=== PATIENT | female | born 1950 | race Caucasian/White ===

== ENCOUNTER 2019-03-06 20:18 | Inpatient (IN) | payer MEDICARE, MEDICAID ==
[~2019-03-06] VITALS: Ht 172.7 cm; Wt 79.5 kg
[2019-03-06 21:10] LABS: BASOPHILS # (AUTO) 0.1 X10'3 (0-0.2); BASOPHILS % (AUTO) 0.5 % (0-1); EOSINOPHILS % (AUTO) 0.1 % (0-6); HEMATOCRIT 35.2 % (35.0-45.0); HEMOGLOBIN 12.2 g/dl (12.0-16.0); LYMPHOCYTES # (AUTO) 0.6 X10'3 (1.1-4.8); LYMPHOCYTES % (AUTO) 2.2 % (21-51); MEAN CORPUSCULAR HEMOGLOBIN 32.7 PG (27.0-31.0); MEAN CORPUSCULAR HGB CONC 34.6 g/dL (33.0-36.5); MEAN CORPUSCULAR VOLUME 94.3 FL (78-98); MEAN PLATELET VOLUME 8.3 FL (7.4-10.4); MONOCYTES # (AUTO) 1.2 X10'3 (0-0.9); MONOCYTES % (AUTO) 4.3 % (2-12); NEUTROPHILS # (AUTO) 25.4 X10'3 (1.8-7.7); NEUTROPHILS % (AUTO) 92.9 % (42-75); PLATELET COUNT 385 X10'3 (140-440); RED BLOOD COUNT 3.73 X10'6 (4.20-5.60); RED CELL DISTRIBUTION WIDTH 17.7 % (11.5-14.5)
[2019-03-06 21:15] LABS: WHITE BLOOD COUNT 27.3 X10'3 (4.5-11.0)
[2019-03-06] MEDS ORDERED: normal saline 1000ML IV soln IV ONE (21:20)
[2019-03-06 21:22] LABS: CLARITY,URINE SLIGHTLY CLOUDY (Clear); COLOR,URINE AMBER (Yellow); GLUCOSE, URINE NEGATIVE (Neg); KETONES,URINE TRACE mg/dl (Neg); LEUKOCYTE ESTERASE ,URINE NEGATIVE (Neg); OCCULT BLOOD,URINE NEGATIVE (Neg); PROTEIN,URINE 30 mg/dl (Neg); UROBILINOGEN,URINE >=8.0 E.U/dL (0.2-1.0)
[2019-03-06 21:23] LABS: UA COLLECTION TYPE CLN CATCH MIDSTREAM
[2019-03-06 21:25] LABS: NITRITES, URINE NEGATIVE (Neg)
[2019-03-06 21:30] LABS: AMORPHOUS URATES 1+; BACTERIA,URINE 1+ /HPF (Neg); MUCUS STRANDS MODERATE /LPF (Neg); RBC,URINE NONE SEEN /HPF (0-2); SQUAMOUS EPITHELIAL CELL,UR MANY /LPF (FEW); WBC,URINE 0-4 /HPF (0-4)
[2019-03-06 21:41] LABS: ALANINE AMINOTRANSFERASE 59 U/L (12-78); ALBUMIN/GLOBULIN RATIO 0.4 (1.1-1.5); ALKALINE PHOSPHATASE 358 IU/L (46-116); ANION GAP 9 (8-16); ASPARTATE AMINO TRANSFERASE 116 U/L (10-37); BILIRUBIN,TOTAL 2.4 MG/DL (0.1-1.0); BLOOD UREA NITROGEN 42 MG/DL (7-18); BUN/CREATININE RATIO 28.6 (6.6-38.0); CHLORIDE 91 MMOL/L (99-107); CREATININE 1.47 MG/DL (0.40-0.90); GLUCOSE 138 MG/DL (70-104); MAGNESIUM 1.5 MG/DL (1.5-2.4); POTASSIUM 3.2 MMOL/L (3.5-5.1); SODIUM 133 MMOL/L (135-145); TOTAL CARBON DIOXIDE 33.2 MMOL/L (24-32); TOTAL PROTEIN 7.3 G/DL (6.4-8.2); eGFR 35 ML/MIN
[2019-03-06 21:43] LABS: CALCIUM 12.7 MG/DL (8.5-10.1)
--- NOTE | 2019-03-06 22:21 | NUR ---
Per Dr. May fowler to order Tylenol po 650mg now for back pain.
[2019-03-06] MEDS ORDERED: acetaminophen 325mg tablet PO ONE (22:25)
[2019-03-06 22:34] LABS: ANISOCYTOSIS 1+; PLATELET ESTIMATE NORMAL; TOTAL CELLS COUNTED 100
[2019-03-06 22:35] LABS: LARGE PLATELETS FEW; TARGET CELLS FEW
[2019-03-06] MEDS ORDERED: HYDR12.55 PO (22:53)
[2019-03-06] MEDS ORDERED: METO100T14 PO (22:53)
[2019-03-06] MEDS ORDERED: morphine 2 MG/ML inj. syringe IV PRN ×2 (23:10)
[2019-03-06] MEDS ORDERED: potassium CL 10mEq/100ml bag 100 ML IV PRN ×2 (23:10)
[2019-03-06] MEDS ORDERED: mag hydrox/Alum hydrox/simeth 30ml oral suspension PO PRN (23:10)
[2019-03-06] MEDS ORDERED: acetaminophen 325mg tablet PO PRN (23:10)
[2019-03-06] MEDS ORDERED: magnesium 4gm in 100ml NS 100 ML IV PRN (23:10)
[2019-03-06] MEDS ORDERED: magnesium hydroxide 30ml (MOM) UD suspension PO PRN (23:10)
[2019-03-06] MEDS ORDERED: magnesium 2GM in 50ml NS 50 ML IV PRN (23:10)
[2019-03-06] MEDS ORDERED: potassium Cl 20 mEq SR tablet PO PRN ×2 (23:10)
--- NOTE | 2019-03-07 00:30 | NUR ---
Patient in room [facility]TH[facility] 4013. I have received report from GRACE Burden and had the opportunity to ask questions and assume patient care.
[2019-03-07] MEDS ORDERED: CefTRIAXone 2gm/D5W 50ml 50 ML IV ONE (00:45)
[2019-03-07] MEDS: normal saline 1000ml 1,000 ML IV SCH ×3 (01:01→19:07)
[2019-03-07 01:03] VITALS: BP 162/87
[2019-03-07] MEDS: acetaminophen 325mg tablet PO PRN (03:12)
[2019-03-07 03:13] LABS: BASOPHILS # (AUTO) 0.1 X10'3 (0-0.2); BASOPHILS % (AUTO) 0.5 % (0-1); EOSINOPHILS % (AUTO) 0 % (0-6); HEMATOCRIT 31.4 % (35.0-45.0); HEMOGLOBIN 11.1 g/dl (12.0-16.0); LYMPHOCYTES # (AUTO) 1.8 X10'3 (1.1-4.8); LYMPHOCYTES % (AUTO) 8.5 % (21-51); MEAN CORPUSCULAR HEMOGLOBIN 33.1 PG (27.0-31.0); MEAN CORPUSCULAR HGB CONC 35.4 g/dL (33.0-36.5); MEAN CORPUSCULAR VOLUME 93.5 FL (78-98); MONOCYTES # (AUTO) 1.1 X10'3 (0-0.9); MONOCYTES % (AUTO) 5.3 % (2-12); NEUTROPHILS # (AUTO) 17.9 X10'3 (1.8-7.7); NEUTROPHILS % (AUTO) 85.7 % (42-75); PLATELET COUNT 338 X10'3 (140-440); RED BLOOD COUNT 3.35 X10'6 (4.20-5.60); RED CELL DISTRIBUTION WIDTH 17.7 % (11.5-14.5); WHITE BLOOD COUNT 20.9 X10'3 (4.5-11.0)
[2019-03-07 03:24] LABS: ALBUMIN 1.8 G/DL (3.4-5.0); ANION GAP 10 (8-16); BLOOD UREA NITROGEN 38 MG/DL (7-18); BUN/CREATININE RATIO 36.2 (6.6-38.0); CHLORIDE 93 MMOL/L (99-107); CREATININE 1.05 MG/DL (0.40-0.90); GLUCOSE 120 MG/DL (70-104); MAGNESIUM 1.4 MG/DL (1.5-2.4); SODIUM 135 MMOL/L (135-145); TOTAL CARBON DIOXIDE 32.4 MMOL/L (24-32); eGFR 52 ML/MIN
[2019-03-07 03:29] LABS: CALCIUM 12.2 MG/DL (8.5-10.1)
[2019-03-07] MEDS ORDERED: POTASSIUM BICARB 20meq eff tab 20 MEQ TABLET.EFF PO PRN (03:40)
[2019-03-07] MEDS: POTASSIUM BICARB 20meq eff tab 20 MEQ TABLET.EFF PO PRN ×3 (03:56→12:57)
[2019-03-07] MEDS: magnesium Cl slow-release 64mg tablet PO PRN ×2 (03:57→15:28)
[2019-03-07 06:00] VITALS: BP 133/75
[2019-03-07 06:35] LABS: TOTAL CELLS COUNTED 100
[2019-03-07 06:36] LABS: ANISOCYTOSIS 1+; PLATELET ESTIMATE NORMAL
[2019-03-07 06:37] LABS: POLYCHROMASIA FEW
[2019-03-07 06:38] LABS: TARGET CELLS 1+
--- NOTE | 2019-03-07 06:47 | NUR ---
Problems reprioritized. Patient report given, questions answered & plan of care reviewed with GRACE Espinoza.
--- NOTE | 2019-03-07 06:57 | NUR ---
Patient in room ORTHO 4013. I have received report from Beti EDWARDS and had the opportunity to ask questions and assume patient care.
[2019-03-07] MEDS: K and/or MAG REPLACEMENT MC SCH (08:12)
[2019-03-07] MEDS: metoprolol tartrate 50mg tablet PO SCH (08:20)
[2019-03-07] MEDS: lactobacillus rhamnosus 10,000 MMU CELLS/CAPSULE PO SCH ×2 (08:20→19:56)
[2019-03-07] MEDS: enoxaparin 40mg/0.4ml syringe SQ SCH (08:21)
[2019-03-07] MEDS: metroNIDAZOLE-Flagyl 500mg/NS 100 ML IV SCH ×2 (08:22→15:28)
[2019-03-07 09:54] LABS: ALANINE AMINOTRANSFERASE 53 U/L (12-78); ASPARTATE AMINO TRANSFERASE 94 U/L (10-37)
[2019-03-07 10:00] VITALS: BP 131/75
--- NOTE | 2019-03-07 10:04 | NUR ---
patient Potassium 3.0 Calcium 12.2 Magnesium 1.4 Started patient on replacement protocol and MD notified.
[2019-03-07] MEDS: HYDROcodone/acetaminophen 5mg/325mg tablet PO PRN (15:28)
--- NOTE | 2019-03-07 17:06 | NUR ---
Malnutrition consult. Per malnutrition risk screening patient reports recent weight loss and poor appetite. No edema present. Current weight 79.55 kg patient stated. Only previous documented weight is 79.7 kg on standing scale three years ago. Appears that current stated weight is consistent with usual body weight. Patient has received two meals so far this admission with 50% PO regular diet. Presents with generalized weakness, dehydration, history of breast cancer, admitted for treatment of severe sepsis, acute renal failure, hypercalcemia possibly d/t suspected metastasis, prerenal dehydration, and possible diverticulitis. Per H&P hypercalcemia History of recent flu two weeks ago. She has increased protein needs r/t sepsis. RD visited patient at bedside, reports a poor appetite due to feeling overwhelmed by the amount of food, obtained food preferences including a hamburger for lunch tomorrow with milk and yogurt. Encouraged intake of protein. Reports diarrhea and is eating bananas to help thicken stool, will send more with breakfast tray. Will continue to follow. Recommend: 1. continue regular diet 2. encourage PO Intake 3. bowel care as needed 3. weight per rx Addendum: 03/07/19 at [address] Amended: Links added.
[2019-03-07 18:00] VITALS: BP 116/68
--- NOTE | 2019-03-07 18:23 | NUR ---
Problems reprioritized. Patient report given, questions answered & plan of care reviewed with Lucinda EDWARDS.
--- NOTE | 2019-03-07 18:30 | NUR ---
Patient in room [facility]TH[facility] 4013. I have received report from Alexis EDWARDS and had the opportunity to ask questions and assume patient care.
[2019-03-07] MEDS ORDERED: pamidronate disodium inj 30 MG in normal saline 250ml IV soln 250 ML IV ONE (19:00)
[2019-03-07 22:00] VITALS: BP 138/89
[2019-03-07] MEDS: CefTRIAXone 2gm/D5W 50ml 50 ML IV SCH (23:44)
[2019-03-08] MEDS: normal saline 1000ml 1,000 ML IV SCH ×2 (00:34→11:31)
[2019-03-08] MEDS: metroNIDAZOLE-Flagyl 500mg/NS 100 ML IV SCH ×5 (00:34→16:53)
[2019-03-08 06:00] VITALS: BP 139/85
--- NOTE | 2019-03-08 06:15 | NUR ---
Patient in room ORTHO 4013. I have received report from GRACE Jane and had the opportunity to ask questions and assume patient care.
--- NOTE | 2019-03-08 06:30 | NUR ---
Problems reprioritized. Patient report given, questions answered & plan of care reviewed with Chasidy EDWARDS.
[2019-03-08] MEDS: HYDROcodone/acetaminophen 5mg/325mg tablet PO PRN ×2 (06:40→19:11)
[2019-03-08] MEDS: ondansetron/PF 4mg/2ml inj IV PRN ×2 (06:40→19:11)
[2019-03-08 07:06] LABS: BASOPHILS % (AUTO) 0.2 % (0-1); EOSINOPHILS % (AUTO) 0 % (0-6); HEMATOCRIT 30.4 % (35.0-45.0); HEMOGLOBIN 10.4 g/dl (12.0-16.0); LYMPHOCYTES # (AUTO) 0.7 X10'3 (1.1-4.8); LYMPHOCYTES % (AUTO) 3.8 % (21-51); MEAN CORPUSCULAR HEMOGLOBIN 32.4 PG (27.0-31.0); MEAN CORPUSCULAR HGB CONC 34.3 g/dL (33.0-36.5); MEAN CORPUSCULAR VOLUME 94.5 FL (78-98); MEAN PLATELET VOLUME 8.1 FL (7.4-10.4); MONOCYTES % (AUTO) 9.9 % (2-12); NEUTROPHILS % (AUTO) 86.1 % (42-75); PLATELET COUNT 316 X10'3 (140-440); RED BLOOD COUNT 3.22 X10'6 (4.20-5.60); RED CELL DISTRIBUTION WIDTH 17.7 % (11.5-14.5); WHITE BLOOD COUNT 19.8 X10'3 (4.5-11.0)
[2019-03-08 07:37] LABS: ALANINE AMINOTRANSFERASE 38 U/L (12-78); ALBUMIN 1.8 G/DL (3.4-5.0); ALBUMIN/GLOBULIN RATIO 0.4 (1.1-1.5); ALKALINE PHOSPHATASE 283 IU/L (46-116); ANION GAP 8 (8-16); ASPARTATE AMINO TRANSFERASE 56 U/L (10-37); BILIRUBIN,TOTAL 1.6 MG/DL (0.1-1.0); BLOOD UREA NITROGEN 30 MG/DL (7-18); BUN/CREATININE RATIO 33.3 (6.6-38.0); CHLORIDE 97 MMOL/L (99-107); GLUCOSE 119 MG/DL (70-104); MAGNESIUM 1.5 MG/DL (1.5-2.4); POTASSIUM 4.2 MMOL/L (3.5-5.1); SODIUM 135 MMOL/L (135-145); TOTAL CARBON DIOXIDE 29.7 MMOL/L (24-32); TOTAL PROTEIN 6.5 G/DL (6.4-8.2); eGFR 62 ML/MIN
[2019-03-08 07:41] LABS: CALCIUM 12.3 MG/DL (8.5-10.1)
[2019-03-08] MEDS: metoprolol tartrate 50mg tablet PO SCH (08:00)
[2019-03-08] MEDS: lactobacillus rhamnosus 10,000 MMU CELLS/CAPSULE PO SCH ×3 (08:00→19:11)
[2019-03-08] MEDS: K and/or MAG REPLACEMENT MC SCH (08:00)
[2019-03-08 10:00] VITALS: BP 132/59
[2019-03-08] MEDS: enoxaparin 40mg/0.4ml syringe SQ SCH (11:30)
--- NOTE | 2019-03-08 14:55 | NUR ---
Patient Care Meeting: Met with pts daughter Myrtle, Pt, and myself in pts room at bedside at 1455. Dr. Crystal informed pt and her daughter of CAT scan results which showed "Multiple hepatic liver lesions and that scan also shows multiple bone breakdowns as tumors can eat up the bones." Discussed pts history of Breast CA in 2014 with bilateral mastectomy's at that time. Dr. Crystal informed pt and daughter that she came in dehydration and her creatinine was high at that time, and her white blood cells were decreasing and her infection is improving. Dtr informed Dr. Crystal that Dr. Vaughn at [facility] was her PCP, and after pt is discharged from [facility], they will discuss treatment options with Dr. Vaughn. Dr. Crystal informed pt and her daughter that there are Option #1 which is no more tests or medications, and she maintain Quality of Life, or #2 she decides to move forward with treatment for the tumors discussed today. Dr. Crystal informed pt and dtr that she should be able to go home in 2-3 days, but because she lives alone (dtr lives nearby), pt needs to be able to ambulate, dress herself, walk to the bathroom, and improve her appetite by eating meals served to her here at the hospital. Pt's daughter informed Dr. Crystal she is not able to provide 24 hour care to her mom at this time. After meeting with pts daughter, Myrtle, she called me out of the room and informed me that she does not want staff members to have any further discussion with the patient about the new diagnosis of the cancer spreading. I told pts daughter that I will be here the next few days, and I can pass this onto the [facility] RN's & staff as well as the Charge Nurse's. Informed Myrtle that if pt has further questions about the information discussed today, I will have the Hospitalist discuss pertinent issues with her. Will continue to monitor and assess pt.
[2019-03-08 18:00] VITALS: BP 128/82
--- NOTE | 2019-03-08 18:00 | NUR ---
RECEIVED REPORT FROM MANGO EDWARDS AND ASSUMED PATIENT CARE
--- NOTE | 2019-03-08 18:33 | NUR ---
Problems reprioritized. Patient report given, questions answered & plan of care reviewed with GRACE Ch.
[2019-03-08] MEDS: CefTRIAXone 2gm/D5W 50ml 50 ML IV SCH (20:46)
[2019-03-09] MEDS: metroNIDAZOLE-Flagyl 500mg/NS 100 ML IV SCH ×2 (00:10→07:39)
[2019-03-09] MEDS: ondansetron/PF 4mg/2ml inj IV PRN ×3 (04:21→20:03)
[2019-03-09] MEDS: HYDROcodone/acetaminophen 5mg/325mg tablet PO PRN ×3 (04:21→20:08)
--- NOTE | 2019-03-09 04:58 | NUR ---
0300 FOUND PATIENT ON HER SIDE IN BED CALLING FOR HELP. REPOSITIONED FOR COMFORT. AT THIS TIME, NOTED PATIENTS CHANGE IN MENTAL STATUS, SPECIFICALLY WITH FINDING HER WORDS. PATIENT ABLE TO STATE NAME, DATE OF AND WHY SHE WAS HERE IN THE HOSPITAL, BUT WHEN TRYING TO CONVEY HOW UNCOMFORTABLE SHE WAS KEPT REPEATING VARIATIONS OF "I CANT SCOOT" AND SAID "I CANT BEND MY SHEETS, KNEES". SHE COULD NOT GIVE A STRAIGHT ANSWER ABOUT WHAT WAS WRONG OR WHAT WE COULD DO TO MAKE HER COMFORTABLE, INSTEAD MUMBLED INCOMPREHENSIBLE WORDS, STUTTERED TRYING TO THINK OF WHAT SHE WAS TRYING TO SAY OR SAID THINGS THAT DIDN'T MAKE SENSE. MADE CALL TO DAUGHTER WHO SAID HER MOTHER STARTED ACTING WEIRD "A FEW DAYS BEFORE SHE CAME IN" BUT NOT TO THIS EXTENT. IN THE BEGINNING OF MY SHIFT PATIENT SEEMED TIRED AND SLOW TO SPEAK BUT WAS ABLE TO FORM COMPREHENSIBLE STATEMENTS ABOUT WHAT SHE NEEDED. MADE CALL TO DR. GARCIA WHO SUGGESTED DRAW AN AMMONIA LEVEL AND HAVE DAY SHIFT HOSPITALIST FOLLOW UP. WILL CONTINUE TO CLOSELY MONITOR.
[2019-03-09 05:49] LABS: BASOPHILS % (AUTO) 0.1 % (0-1); EOSINOPHILS % (AUTO) 0.2 % (0-6); HEMATOCRIT 28.8 % (35.0-45.0); HEMOGLOBIN 9.8 g/dl (12.0-16.0); LYMPHOCYTES # (AUTO) 0.6 X10'3 (1.1-4.8); LYMPHOCYTES % (AUTO) 4.5 % (21-51); MEAN CORPUSCULAR HEMOGLOBIN 32.6 PG (27.0-31.0); MEAN CORPUSCULAR HGB CONC 34.2 g/dL (33.0-36.5); MEAN CORPUSCULAR VOLUME 95.4 FL (78-98); MEAN PLATELET VOLUME 7.7 FL (7.4-10.4); MONOCYTES # (AUTO) 0.8 X10'3 (0-0.9); MONOCYTES % (AUTO) 5.8 % (2-12); NEUTROPHILS # (AUTO) 12.1 X10'3 (1.8-7.7); NEUTROPHILS % (AUTO) 89.4 % (42-75); PLATELET COUNT 275 X10'3 (140-440); RED BLOOD COUNT 3.02 X10'6 (4.20-5.60); WHITE BLOOD COUNT 13.5 X10'3 (4.5-11.0)
--- NOTE | 2019-03-09 06:12 | NUR ---
REPORT GIVEN TO MANGO EDWARDS
--- NOTE | 2019-03-09 06:15 | NUR ---
Problems reprioritized. Patient report given, questions answered & plan of care reviewed with GRACE Ch.
[2019-03-09 06:34] VITALS: BP 133/77
[2019-03-09 06:39] LABS: ALANINE AMINOTRANSFERASE 25 U/L (12-78); ALBUMIN 1.6 G/DL (3.4-5.0); ALBUMIN/GLOBULIN RATIO 0.4 (1.1-1.5); ALKALINE PHOSPHATASE 273 IU/L (46-116); ANION GAP 10 (8-16); ASPARTATE AMINO TRANSFERASE 43 U/L (10-37); BILIRUBIN,TOTAL 1.4 MG/DL (0.1-1.0); BLOOD UREA NITROGEN 28 MG/DL (7-18); BUN/CREATININE RATIO 30.1 (6.6-38.0); CALCIUM 11.3 MG/DL (8.5-10.1); CHLORIDE 101 MMOL/L (99-107); CREATININE 0.93 MG/DL (0.40-0.90); GLUCOSE 115 MG/DL (70-104); MAGNESIUM 1.4 MG/DL (1.5-2.4); SODIUM 139 MMOL/L (135-145); TOTAL CARBON DIOXIDE 27.6 MMOL/L (24-32); eGFR 60 ML/MIN
[2019-03-09] MEDS: lactobacillus rhamnosus 10,000 MMU CELLS/CAPSULE PO SCH ×2 (07:35→19:38)
[2019-03-09] MEDS: magnesium Cl slow-release 64mg tablet PO PRN ×2 (07:36→19:38)
[2019-03-09] MEDS: enoxaparin 40mg/0.4ml syringe SQ SCH (07:36)
[2019-03-09] MEDS: normal saline 1000ml 1,000 ML IV SCH ×2 (07:39→19:45)
[2019-03-09] MEDS: metoprolol tartrate 50mg tablet PO SCH (07:49)
[2019-03-09] MEDS: K and/or MAG REPLACEMENT MC SCH (08:00)
[2019-03-09 09:37] LABS: ANISOCYTOSIS 1+; GIANT PLATELET FEW; LARGE PLATELETS FEW; PLATELET ESTIMATE NORMAL
[2019-03-09 10:52] VITALS: BP 119/69
--- NOTE | 2019-03-09 11:46 | NUR ---
Student Medication Administration: For this medication-pass time frame [id number], all medication were reviewed, administered and documented per hospital policy by Estela Rascon. Student documentation:I have reviewed and agree with all interventions, assessments performed and documented by Estela Rascon.
--- NOTE | 2019-03-09 12:05 | NUR ---
Patient report given, questions answered & plan of care reviewed with Julian EDWARDS .
[2019-03-09] MEDS ORDERED: oseltamivir phos 75mg capsule PO SCH (14:00)
--- NOTE | 2019-03-09 15:32 | NUR ---
Received report at 0620 and informed pt has a temp of 100.6. Pt was given [place]. Went to pts room. Recheck of temp was 98.2. Pt could verbalize her , but could not tell me where she was at this time. Pt completely focused on her blankets and the call light. Pt asking frequently (every 1 min) for RN to make her "covers even on her bed, and please put my body in the middle of the bed, directly between these posts." Respositioned pt multiple times during the past 8 hours, and would continue to ask nurse to reposition her after she was assisted up in the bed, as well as re evaluated pts pain. Pt reported she did not need pain medicine. Pt reported when she received her breakfast tray that "yesterday they taped all the lids of juice down so I couldn't drink my fluids. Pt appeared more alert/oriented at approximately 1100 when made rounds. Pt could inform him of name, , and location. At approximately 12:45, pt returned to asking for us to "get her covers straight, and put my call light right here," when call light was already safety pinned to pts gown. Repetitive behaviors, asking the same question, flat affect, word finding and keeping the nurse in the room for long periods of time as she keeps asking the same question over and over, and despite answering the pts question, the behavior continues. Dr. Logan ordered CT of head with contrast. Spoke directly with Jodi in [place] and informed of CT with contrast. Pt assisted to w/c at [address] Received a call from the "Radiologist," who stated the CT was done without contrast. Informed Radiologist that CT was ordered with contrast and he stated he would check into it and call me back. As of 154, I have not received a return phone call. Will continue to monitor pt closely.
[2019-03-09] MEDS: metroNIDAZOLE 500mg tablet PO SCH (16:03)
[2019-03-09 18:00] VITALS: BP 131/79
--- NOTE | 2019-03-09 18:04 | NUR ---
RECEIVED REPORT FROM MANGO EDWARDS AND ASSUMED PATIENT CARE
--- NOTE | 2019-03-09 18:40 | NUR ---
Problems reprioritized. Patient report given, questions answered & plan of care reviewed with GRACE Ch.
[2019-03-09] MEDS: CefTRIAXone 2gm/D5W 50ml 50 ML IV SCH (20:08)
[2019-03-09 22:00] VITALS: BP 130/68
[2019-03-10] MEDS: metroNIDAZOLE 500mg tablet PO SCH ×4 (00:22→23:35)
[2019-03-10] MEDS: normal saline 1000ml 1,000 ML IV SCH ×3 (02:10→23:35)
[2019-03-10] MEDS: ondansetron/PF 4mg/2ml inj IV PRN ×4 (03:18→23:34)
[2019-03-10] MEDS: HYDROcodone/acetaminophen 5mg/325mg tablet PO PRN ×4 (03:18→23:34)
[2019-03-10 05:51] VITALS: BP 126/65
--- NOTE | 2019-03-10 06:23 | NUR ---
REPORT GIVEN TO MANGO EDWARDS
[2019-03-10 07:08] LABS: BASOPHILS % (AUTO) 0.2 % (0-1); EOSINOPHILS % (AUTO) 0.1 % (0-6); HEMATOCRIT 28.4 % (35.0-45.0); HEMOGLOBIN 9.6 g/dl (12.0-16.0); LYMPHOCYTES # (AUTO) 0.5 X10'3 (1.1-4.8); LYMPHOCYTES % (AUTO) 3.4 % (21-51); MEAN CORPUSCULAR HEMOGLOBIN 32.5 PG (27.0-31.0); MEAN CORPUSCULAR HGB CONC 33.9 g/dL (33.0-36.5); MEAN PLATELET VOLUME 7.8 FL (7.4-10.4); MONOCYTES # (AUTO) 0.8 X10'3 (0-0.9); MONOCYTES % (AUTO) 5.8 % (2-12); NEUTROPHILS # (AUTO) 13.1 X10'3 (1.8-7.7); NEUTROPHILS % (AUTO) 90.5 % (42-75); PLATELET COUNT 268 X10'3 (140-440); RED BLOOD COUNT 2.96 X10'6 (4.20-5.60); RED CELL DISTRIBUTION WIDTH 17.7 % (11.5-14.5); WHITE BLOOD COUNT 14.4 X10'3 (4.5-11.0)
[2019-03-10 07:36] LABS: ALANINE AMINOTRANSFERASE 33 U/L (12-78); ALBUMIN 1.7 G/DL (3.4-5.0); ALBUMIN/GLOBULIN RATIO 0.4 (1.1-1.5); ALKALINE PHOSPHATASE 295 IU/L (46-116); ANION GAP 7 (8-16); ASPARTATE AMINO TRANSFERASE 38 U/L (10-37); BILIRUBIN,TOTAL 0.8 MG/DL (0.1-1.0); BLOOD UREA NITROGEN 25 MG/DL (7-18); BUN/CREATININE RATIO 29.1 (6.6-38.0); CALCIUM 10.3 MG/DL (8.5-10.1); CHLORIDE 101 MMOL/L (99-107); CREATININE 0.86 MG/DL (0.40-0.90); GLUCOSE 122 MG/DL (70-104); MAGNESIUM 1.4 MG/DL (1.5-2.4); SODIUM 135 MMOL/L (135-145); TOTAL CARBON DIOXIDE 26.7 MMOL/L (24-32); TOTAL PROTEIN 6.2 G/DL (6.4-8.2); eGFR 65 ML/MIN
[2019-03-10] MEDS ORDERED: potassium Cl 20 mEq SR tablet PO PRN ×2 (07:55)
[2019-03-10] MEDS ORDERED: potassium CL 10mEq/100ml bag 100 ML IV PRN (07:55)
[2019-03-10] MEDS ORDERED: magnesium Cl slow-release 64mg tablet PO PRN (07:55)
[2019-03-10] MEDS: K and/or MAG REPLACEMENT MC SCH (08:00)
[2019-03-10] MEDS: lactobacillus rhamnosus 10,000 MMU CELLS/CAPSULE PO SCH ×2 (09:43→19:51)
[2019-03-10] MEDS: metoprolol tartrate 50mg tablet PO SCH (09:47)
[2019-03-10] MEDS: enoxaparin 40mg/0.4ml syringe SQ SCH (09:52)
[2019-03-10 10:00] VITALS: BP 166/106
--- NOTE | 2019-03-10 14:03 | NUR ---
Reassessment: Pt PO 25-50% avg meals; reported too much food on trays during last RD visit. Pt had few bouts of diarrhea more significant than smears yesterday per RN. 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 Ca down to 10.3 from prior 12.3. Ensure Enlive vanilla added BIDLD for additional protein needs since lower PO solid meals; MD notified. Pending verification prior to sending on trays. Will monitor for ONS acceptance and additional malnutrition criteria this admit. Recommend: 1. continue regular diet 2. Vanilla ensure enlive BIDLD; encourage PO Intake 3. bowel care as needed 4. weight per rx Addendum: 03/10/19 at [address] Amended: Links added.
[2019-03-10] MEDS ORDERED: lactose-reduced food (Ensure Enlive) - 237ml bottle PO SCH (17:30)
[2019-03-10 18:05] VITALS: BP 122/55
--- NOTE | 2019-03-10 18:15 | NUR ---
RECEIVED REPORT FROM MANGO EDWARDS AND ASSUMED PATIENT CARE
[2019-03-10] MEDS: CefTRIAXone 2gm/D5W 50ml 50 ML IV SCH (19:51)
[2019-03-10 22:00] VITALS: BP 157/57
[2019-03-11 06:00] VITALS: BP 162/83
[2019-03-11 06:07] LABS: BASOPHILS % (AUTO) 0.2 % (0-1); EOSINOPHILS # (AUTO) 0.1 X10'3 (0-0.9); EOSINOPHILS % (AUTO) 0.6 % (0-6); HEMATOCRIT 26.7 % (35.0-45.0); HEMOGLOBIN 9.2 g/dl (12.0-16.0); LYMPHOCYTES # (AUTO) 0.6 X10'3 (1.1-4.8); LYMPHOCYTES % (AUTO) 4.4 % (21-51); MEAN CORPUSCULAR HEMOGLOBIN 32.7 PG (27.0-31.0); MEAN CORPUSCULAR HGB CONC 34.4 g/dL (33.0-36.5); MEAN CORPUSCULAR VOLUME 95.1 FL (78-98); MEAN PLATELET VOLUME 7.4 FL (7.4-10.4); MONOCYTES # (AUTO) 0.6 X10'3 (0-0.9); MONOCYTES % (AUTO) 4.3 % (2-12); NEUTROPHILS # (AUTO) 12.2 X10'3 (1.8-7.7); NEUTROPHILS % (AUTO) 90.5 % (42-75); PLATELET COUNT 263 X10'3 (140-440); RED BLOOD COUNT 2.81 X10'6 (4.20-5.60); RED CELL DISTRIBUTION WIDTH 17.9 % (11.5-14.5); WHITE BLOOD COUNT 13.4 X10'3 (4.5-11.0)
--- NOTE | 2019-03-11 06:10 | NUR ---
Patient in room ORTH[facility] 4013. I have received report from Jing and had the opportunity to ask questions and assume patient care.
[2019-03-11 06:18] LABS: ALANINE AMINOTRANSFERASE 20 U/L (12-78); ALBUMIN 1.6 G/DL (3.4-5.0); ALBUMIN/GLOBULIN RATIO 0.4 (1.1-1.5); ALKALINE PHOSPHATASE 274 IU/L (46-116); ANION GAP 8 (8-16); ASPARTATE AMINO TRANSFERASE 33 U/L (10-37); BILIRUBIN,TOTAL 0.6 MG/DL (0.1-1.0); BLOOD UREA NITROGEN 19 MG/DL (7-18); BUN/CREATININE RATIO 25.7 (6.6-38.0); CALCIUM 9.5 MG/DL (8.5-10.1); CHLORIDE 103 MMOL/L (99-107); CREATININE 0.74 MG/DL (0.40-0.90); GLUCOSE 114 MG/DL (70-104); MAGNESIUM 1.3 MG/DL (1.5-2.4); SODIUM 137 MMOL/L (135-145); TOTAL CARBON DIOXIDE 26.2 MMOL/L (24-32); TOTAL PROTEIN 5.8 G/DL (6.4-8.2); eGFR 78 ML/MIN
--- NOTE | 2019-03-11 06:24 | NUR ---
REPORT GIVEN TO GENET EDWARDS
[2019-03-11] MEDS: K and/or MAG REPLACEMENT MC SCH (07:13)
[2019-03-11] MEDS: metroNIDAZOLE 500mg tablet PO SCH ×2 (07:36→16:27)
[2019-03-11] MEDS: lactobacillus rhamnosus 10,000 MMU CELLS/CAPSULE PO SCH ×2 (07:36→20:51)
[2019-03-11] MEDS: metoprolol tartrate 50mg tablet PO SCH (07:39)
[2019-03-11] MEDS: enoxaparin 40mg/0.4ml syringe SQ SCH (07:40)
[2019-03-11] MEDS: ondansetron/PF 4mg/2ml inj IV PRN ×2 (07:41→20:58)
[2019-03-11] MEDS: HYDROcodone/acetaminophen 5mg/325mg tablet PO PRN ×3 (07:41→20:51)
[2019-03-11 10:00] VITALS: BP 146/74
[2019-03-11] MEDS: normal saline 1000ml 1,000 ML IV SCH ×2 (14:01→18:30)
[2019-03-11 18:00] VITALS: BP 149/71
--- NOTE | 2019-03-11 18:21 | NUR ---
Problems reprioritized. Patient report given, questions answered & plan of care reviewed with Padmini.
[2019-03-11 22:00] VITALS: BP 127/75
[2019-03-11] MEDS: CefTRIAXone 2gm/D5W 50ml 50 ML IV SCH (22:00)
[2019-03-12] MEDS: metroNIDAZOLE 500mg tablet PO SCH ×3 (00:34→17:20)
[2019-03-12] MEDS: normal saline 1000ml 1,000 ML IV SCH ×3 (00:54→20:18)
[2019-03-12] MEDS: HYDROcodone/acetaminophen 5mg/325mg tablet PO PRN ×4 (05:45→21:19)
[2019-03-12] MEDS: ondansetron/PF 4mg/2ml inj IV PRN ×2 (05:49→21:24)
[2019-03-12 06:00] VITALS: BP 147/76
[2019-03-12 07:15] LABS: ALANINE AMINOTRANSFERASE 15 U/L (12-78); ALBUMIN 1.4 G/DL (3.4-5.0); ALBUMIN/GLOBULIN RATIO 0.4 (1.1-1.5); ALKALINE PHOSPHATASE 229 IU/L (46-116); ANION GAP 8 (8-16); ASPARTATE AMINO TRANSFERASE 23 U/L (10-37); BILIRUBIN,TOTAL 0.5 MG/DL (0.1-1.0); BLOOD UREA NITROGEN 13 MG/DL (7-18); BUN/CREATININE RATIO 19.7 (6.6-38.0); CALCIUM 8.9 MG/DL (8.5-10.1); CHLORIDE 103 MMOL/L (99-107); CREATININE 0.66 MG/DL (0.40-0.90); GLUCOSE 112 MG/DL (70-104); MAGNESIUM 1.5 MG/DL (1.5-2.4); POTASSIUM 3.9 MMOL/L (3.5-5.1); SODIUM 135 MMOL/L (135-145); TOTAL CARBON DIOXIDE 23.8 MMOL/L (24-32); TOTAL PROTEIN 5.4 G/DL (6.4-8.2); eGFR 89 ML/MIN
[2019-03-12] MEDS: K and/or MAG REPLACEMENT MC SCH (08:00)
[2019-03-12] MEDS: metoprolol tartrate 50mg tablet PO SCH (08:43)
[2019-03-12] MEDS: enoxaparin 40mg/0.4ml syringe SQ SCH (08:43)
[2019-03-12] MEDS: lactobacillus rhamnosus 10,000 MMU CELLS/CAPSULE PO SCH ×2 (08:43→20:17)
[2019-03-12] MEDS: acetaminophen 325mg tablet PO PRN (08:51)
[2019-03-12 10:00] VITALS: BP 149/81
[2019-03-12 18:00] VITALS: BP 129/80
--- NOTE | 2019-03-12 18:13 | NUR ---
Problems reprioritized. Patient report given, questions answered & plan of care reviewed with Gaby RN.
--- NOTE | 2019-03-12 18:30 | NUR ---
Received report from Gwen EDWARDS. assumed care of patient.
[2019-03-12] MEDS: CefTRIAXone 2gm/D5W 50ml 50 ML IV SCH (20:17)
[2019-03-12 22:00] VITALS: BP 124/75
--- NOTE | 2019-03-12 22:15 | NUR ---
Gave report to Lucinda. Addendum: 03/12/19 at 2354 by Gaby Viveros RN Lucinda EDWARDS
[2019-03-13] MEDS: metroNIDAZOLE 500mg tablet PO SCH ×2 (00:07→08:55)
--- NOTE | 2019-03-13 00:39 | NUR ---
I have reviewed and agree with all interventions, assessments performed and documented by Gaby EDWARDS .
[2019-03-13] MEDS: HYDROcodone/acetaminophen 5mg/325mg tablet PO PRN ×2 (01:22→05:11)
[2019-03-13] MEDS: ondansetron/PF 4mg/2ml inj IV PRN ×2 (05:19→12:46)
[2019-03-13] MEDS: normal saline 1000ml 1,000 ML IV SCH (05:56)
[2019-03-13 06:00] VITALS: BP 125/77
--- NOTE | 2019-03-13 06:25 | NUR ---
Patient in room ORTHO 4013. I have received report from AVTAR EDWARDS and had the opportunity to ask questions and assume patient care.
--- NOTE | 2019-03-13 06:30 | NUR ---
Problems reprioritized. Patient report given, questions answered & plan of care reviewed with Linden EDWARDS.
--- NOTE | 2019-03-13 07:29 | NUR ---
MARC [id number] RE: NORBERT [id number] PT NEEDS SOMETHING FOR PAIN, NORCO 5 GIVEN STILL 11/15. WONT WOTK WITH THERAPY UNTIL PAIN IS BETTER.
[2019-03-13] MEDS: K and/or MAG REPLACEMENT MC SCH (08:00)
[2019-03-13] MEDS ORDERED: morphine 2 MG/ML inj. syringe IV PRN (08:00)
[2019-03-13] MEDS: metoprolol tartrate 50mg tablet PO SCH (08:52)
[2019-03-13] MEDS: lactobacillus rhamnosus 10,000 MMU CELLS/CAPSULE PO SCH (08:52)
[2019-03-13] MEDS: enoxaparin 40mg/0.4ml syringe SQ SCH (08:53)
[2019-03-13] MEDS: HYDROcodone/acetaminophen 10/325mg tab PO PRN ×2 (08:56→12:34)
[2019-03-13 09:29] VITALS: BP 108/69
--- NOTE | 2019-03-13 13:42 | NUR ---
Reassessment: Pt PO improved to 75% avg past 3 days meeting needs. LBM 03/13. No nutrition concerns at this time. Will continue to monitor. Recommend: 1. continue regular diet 2. Vanilla ensure enlive BIDLD; encourage PO Intake 3. bowel care as needed 4. weight per rx Addendum: 03/13/19 at [address] Amended: Links added.
--- NOTE | 2019-03-13 15:00 | NUR ---
Student documentation: I have reviewed and agree with all interventions, assessments performed and documented by KATY BLUNT. Student Medication Administration: For this medication-pass time frame, all medication were reviewed, dispensed, administered and documented per hospital policy by KATY BLUNT.
== END 2019-03-13 15:15 | DRG 871 ==
LOC: ER 20:19 → ED HOLD 23:12 → ORTHO 4S 03-07 00:53
PROVIDERS: ADMIT Hospitalist; ATTEND Hospitalist
DX: A41.9 Sepsis, unspecified organism (principal); N17.0 Acute kidney failure with tubular necrosis; C78.7 Secondary malignant neoplasm of liver and intrahepatic bile duct; C79.51 Secondary malignant neoplasm of bone; E44.0 Moderate protein-calorie malnutrition; R65.20 Severe sepsis without septic shock; Z60.2 Problems related to living alone; E87.6 Hypokalemia; E83.42 Hypomagnesemia; R62.7 Adult failure to thrive; E83.52 Hypercalcemia; M54.5 Low back pain; E86.0 Dehydration; G89.29 Other chronic pain; Z66 Do not resuscitate; Z90.13 Acquired absence of bilateral breasts and nipples; Z68.26 Body mass index [BMI] 26.0-26.9, adult
CPT/HCPCS: 36415; 70450; 71045; 74176; 80048; 80053; 81001; 82140; 83605; 83735; 83880; 84145; 84439; 84443; 84450; 84460; 84484; 85025; 87040; 87081; 93005; 93306; 97110; 97116; 97162; 97530; 99285; G0378; J0696; J1650; J2405; J2430; J3475; J3490; J7030; J7050